=== PATIENT | male | born 1945 | race Caucasian/White ===

== ENCOUNTER 2018-01-17 13:27 | Emergency (ER) | payer MEDICARE, SELFPAY ==
[2018-01-17 13:30] VITALS: BP 143/75; PULSE 102; RESP 20; TEMP 37.1; O2SAT 93; BMI 38.7
--- NOTE | 2018-01-17 14:05 | CT_ITS ---
STUDY: CT ABDOMEN AND PELVIS WITH CONTRAST REASON FOR EXAM: Male, 72 years old. Right diaphragm pain RADIATION DOSAGE (If Supplied By Facility): CTDIvol = ( 22.77 ) mGy, DLP = ( 2106.52 ) mGycm TECHNIQUE: Transaxial images were obtained from the dome of the diaphragm to the symphysis pubis without oral contrast. 100 ml of Isovue 300 contrast was administered. Sagittal and coronal images were reconstructed. Individualized dose optimization techniques were used for this CT. COMPARISON: None. FINDINGS: Bibasilar airspace disease with small right effusion. Mild cardiomegaly. There is decreased attenuation of the liver consistent with steatosis. Normal gallbladder and extrahepatic biliary system. Normal spleen. Normal pancreas. Normal bilateral adrenal glands. Nonenhancing bilateral renal cysts, otherwise kidneys are within normal limits. There is a small hiatal hernia. Normal small intestine. There are multiple colonic diverticula consistent with diverticulosis. The appendix is visualized and appears normal. Normal abdominal aorta. Normal inferior vena cava. Normal retroperitoneum. Bladder diverticulum is noted on the left side. Otherwise, unremarkable bladder. There is enlargement of the prostate gland. Left lateral abdominal wall hernia just underneath the anterior portion of the ribs containing a loop of colon without obstruction. There are diffuse degenerative changes of the visualized lumbar spine. CT/Abdomen/Pelvis W IV Cont ONLY IMPRESSION: Bibasilar airspace disease with small right effusion. Mild cardiomegaly. No acute findings within the abdomen or pelvis Electronically Signed: Candido Piedra DO at 15:48 EDT Tel , Service support ,
[2018-01-17] MEDS: 0.9% Normal Saline 1,000 ML 15 ML IV (14:14)
[2018-01-17 14:38] VITALS: BP 135/74; PULSE 88; RESP 20; O2SAT 92
[2018-01-17 14:44] LABS: Absolute Lymphocyte Count 0.61 X10^3/ul (0.83-4.51); Absolute Neutrophil Count 9.4 X10^3/uL (2.0-7.7); Basophil# 0.01 X10^3/uL; Basophil% 0.1 % (0-1); Hematocrit 41.3 % (40-54); Hemoglobin 13.5 g/dl (13.0-16.5); Lymphocyte # 0.61 X10^3/ul (4.0); Lymphocyte % 5.4 % (19-41); Mean Corp Hgb Conc 32.7 g/gl (32-36); Mean Corpuscular Hgb 29.2 pg (27.0-32.0); Mean Corpuscular Volume 89.4 fL (80-94); Mean Platelet Vol. 10.4 fl (6.2-12.0); Monocyte# 1.34 X10^3/uL; Monocyte% 11.8 % (0-10); Neutrophil # 9.37 X10^3/uL (2.7-7.7); Neutrophil % 82.5 % (47-70); POSITIVE COUNT NO; POSITIVE DIFFERENTIAL NO; POSITIVE MORPHOLOGY NO; Platelet Count 235 K/mm3 (150-450); RBC Distribution Width CV 13.1 % (11.6-14.6); RBC Distribution Width SD 42.6 fl (35.1-43.9); Red Blood Count 4.62 M/mm3 (4.6-6.2); White Blood Count 11.4 K/mm3 (4.4-11.0)
[2018-01-17 14:49] LABS: Anion Gap 10 (5-15); BUN 19 mg/dL (7-18); BUN/Creat Ratio 14.8 RATIO (10-20); Calcium,Total 8.7 mg/dL (8.5-10.1); Chloride 98 mmol/L (98-107); Creatinine, Serum 1.28 mg/dL (0.70-1.30); EST Glomerular Filtration Rate 59 mL/min (>60); Est Glom Filt Rate - Afr Amer 71 mL/min (>60); Estimated Creatinine Clearance 53.86 ml/min; Glucose 135 mg/dL (74-106); Potassium 3.5 mmol/L (3.5-5.1); Sodium Level 135 mmol/L (136-145)
[2018-01-17 15:44] VITALS: BP 145/75; PULSE 90; RESP 18; O2SAT 97
[2018-01-17 16:18] VITALS: BP 140/76; PULSE 91; RESP 20; O2SAT 96
--- NOTE | 2018-01-17 16:32 | ED.VISSUMM ---
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 Patient states 3 weeks ago he developed low back pain. It seemed to resolve after a week or so. Over the past 4 days or so patient now has pain in the left lateral abdominal wall and the left lower ribs. He does have increased pain when he takes a deep breath. He denies leg pain or swelling. Denies nausea, vomiting, or diarrhea. Patient denies any known injury. Physical Examination: Vital signs are gross unremarkable. Patient sitting upright in bed no acute distress. Head and neck examination is normal. Heart is regular rate and rhythm. Lung sounds are clear. He has reproducible chest wall tenderness in the left lower chest. Abdomen is soft with tenderness in the left lateral abdominal wall. Ecchymosis is noted to this area as well. Lower extremity examination reveals no significant edema. He has strong distal pulses. Test Results: EKG is sinus at 100 with no sign of acute ischemia. CBC was a white count 11.4 with 82% neutrophils. Chemistry studies are grossly unremarkable. Troponin is negative. CTA of the chest shows no evidence of PE or dissection. There is a questionable small amount of edema. CT the abdomen and pelvis shows bibasilar airspace disease with small right pleural effusion. No acute findings are noted in the abdomen or pelvis. Emergency Department Course and Treatment: Patient received IV fluids here. Test results were discussed with him at length. At this time I see no evidence of PE or internal injury causing his pain and bruising. Patient believes he has pleurisy as it does feel similar to this in the past. I advised him that this may be the case for his chest pain, but I am unable to explain why he also has abdominal pain with abdominal wall bruising. Most likely has a contusion that he does not remember. Patient will be treated with a course of steroids and he will use Tylenol or ibuprofen. Treatment Plan: [] Disposition: Discharge Impression: 1. Pleuritic chest pain 2. Abdominal wall contusion This note was generated with [employer] dictation software. It may contain incorrect words, spelling, and punctuation that were not noted in review of the chart prior to signing ED Disposition - Plan for ED Patient: Chief Complaint: Chest Pain Referrals: Hamilton Israel MD [Primary Care Provider] -
--- NOTE | 2018-01-17 16:36 | ED.DCSUM_ITS ---
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 Patient states 3 weeks ago he developed low back pain. It seemed to resolve after a week or so. Over the past 4 days or so patient now has pain in the left lateral abdominal wall and the left lower ribs. He does have increased pain when he takes a deep breath. He denies leg pain or swelling. Denies nausea, vomiting, or diarrhea. Patient denies any known injury. Physical Examination: Vital signs are gross unremarkable. Patient sitting upright in bed no acute distress. Head and neck examination is normal. Heart is regular rate and rhythm. Lung sounds are clear. He has reproducible chest wall tenderness in the left lower chest. Abdomen is soft with tenderness in the left lateral abdominal wall. Ecchymosis is noted to this area as well. Lower extremity examination reveals no significant edema. He has strong distal pulses. Test Results: EKG is sinus at 100 with no sign of acute ischemia. CBC was a white count 11.4 with 82% neutrophils. Chemistry studies are grossly unremarkable. Troponin is negative. CTA of the chest shows no evidence of PE or dissection. There is a questionable small amount of edema. CT the abdomen and pelvis shows bibasilar airspace disease with small right pleural effusion. No acute findings are noted in the abdomen or pelvis. Emergency Department Course and Treatment: Patient received IV fluids here. Test results were discussed with him at length. At this time I see no evidence of PE or internal injury causing his pain and bruising. Patient believes he has pleurisy as it does feel similar to this in the past. I advised him that this may be the case for his chest pain, but I am unable to explain why he also has abdominal pain with abdominal wall bruising. Most likely has a contusion that he does not remember. Patient will be treated with a course of steroids and he will use Tylenol or ibuprofen. Treatment Plan: [] Disposition: Discharge Impression: 1. Pleuritic chest pain 2. Abdominal wall contusion This note was generated with [employer] dictation software. It may contain incorrect words, spelling, and punctuation that were not noted in review of the chart prior to signing ED Disposition - Plan for ED Patient: Chief Complaint: Chest Pain Referrals: Hamilton Israel MD [Primary Care Provider] -
--- NOTE | 2018-01-17 16:36 | ED.DEP ---
ED Disposition - Plan for ED Patient: Disposition: Home or Assisted Living Chief Complaint: Chest Pain Instructions: ED Chest Pain Pleurisy, ED Contusion Chest Wall Prescriptions: Prednisone 10 mg PO UD #33 tablet Referrals: Hamilton Israel MD [Primary Care Provider] - 1 Week if not improving
[2018-01-17 16:40] VITALS: BP 148/76; PULSE 98; RESP 20; O2SAT 97
[2018-01-17] MEDS: predniSONE 20 MG Tablet 60 MG PO (16:44)
== END 2018-01-17 16:47 | disposition home or self-care (01) ==
PROVIDERS: Emergency Provider Emergency Medicine; Family Provider Family Medicine; PCP Family Medicine
DX: R07.81 Pleurodynia (principal); M54.5 Low back pain; S30.1XXA Contusion of abdominal wall, initial encounter; X58.XXXA Exposure to other specified factors, initial encounter; Y93.9 Activity, unspecified; Y92.9 Unspecified place or not applicable; Y99.9 Unspecified external cause status; I10 Essential (primary) hypertension; Z79.82 Long term (current) use of aspirin; Z79.899 Other long term (current) drug therapy
CPT/HCPCS: 71275; 74177; 80048; 84484; 85025; 93005; 99285; J7030; Q9967; A4216

== ENCOUNTER 2018-03-27 17:28 | Emergency (ER) | payer MEDICARE, SELFPAY ==
[2018-03-27] VITALS (7 sets, daily range): BP systolic 79–120; BP diastolic 43–50; PULSE 96–112; RESP 16–18; TEMP 36.5; O2SAT 91–100; BMI 38.0
--- NOTE | 2018-03-27 17:41 | RAD_ITS ---
STUDY: X-RAY CHEST REASON FOR EXAM: Male, 73 years old. Shortness of breath. GI bleed. TECHNIQUE: Single frontal view of the chest. COMPARISON: None. FINDINGS: The lungs are mildly hyperexpanded. There is no demonstrated pleural abnormality. There is borderline cardiomegaly. Normal mediastinum and cyrus. Normal visualized pulmonary arteries. Normal visualized aortic arch and descending thoracic aorta. Normal visualized thoracic spine. Normal visualized ribs, clavicles, and shoulders. There is no demonstrated abnormality of the visualized soft tissue structures of the upper abdomen. RAD/Chest 1 View (Portable) IMPRESSION: Borderline cardiomegaly with mild hyperexpansion. No acute abnormality. Electronically Signed: David Johnston MD at 18:10 EDT , Service support ,
--- NOTE | 2018-03-27 17:41 | CT_ITS ---
STUDY: CT ABDOMEN AND PELVIS WITH CONTRAST REASON FOR EXAM: Male, 73 years old. Abdominal pain, leukocytosis, prior hernia repair RADIATION DOSAGE (If Supplied By Facility): CTDIvol = ( 17.08 ) mGy, DLP = ( 1515.28 ) mGycm TECHNIQUE: Transaxial images were obtained from the lower chest to the upper thighs with oral contrast. 100 ml of Isovue 300 contrast was administered. Sagittal and coronal images were reconstructed. Individualized dose optimization techniques were used for this CT. COMPARISON: January 17, 2018 FINDINGS: There is minimal dense opacity in the left lower lobe with a few air bronchograms. There are coarse markings in the right lower lobe. There is moderate fluid in the left pleural margin which is partially loculated. There is minimal fluid in the right pleural margin. There is minimal air in the anterior left pleural margin. The heart is normal in size. There is a stable subcentimeter cyst in the right lobe of the liver near the gallbladder. The gallbladder is contracted. There is a 7 mm calcification in the lumen of the gallbladder. The spleen is unremarkable. The pancreas is unremarkable. The adrenal glands are unremarkable. There are a few small cysts in the right kidney. There is no dilatation of the collecting system in the right kidney. A cyst is again seen in the mid pole of the left kidney measuring 3.4 cm in diameter. There is no dilatation of the collecting system in the left kidney. The stomach is distended. Small bowel loops are prominent. There are diverticula in the distal colon without adjacent stranding. The appendix is visualized and appears normal. There are minimal vascular calcifications. The inferior vena cava is unremarkable. There is stranding in the mesentery of the left upper quadrant. There is no free fluid in the abdomen. There is air in the lumen of the bladder. There is a 4.5 cm diverticulum off the left posterior aspect of the bladder, also containing air. The prostate measures up to 6.2 cm in diameter. There are small phleboliths scattered in the lower pelvis. There is stranding along the lateral left upper abdominal wall. Fluid is present in the left lateral abdominal wall, and there are air foci in the left lateral abdominal wall and musculature. There are fractures in the left lower ribs, likely from recent surgery. There are mild degenerative changes visualized spine. There are marked degenerative disc changes at L5-S1. CT/Abdomen/Pelvis WITH Contrast IMPRESSION: There are surgical changes along the left lateral abdominal wall after repair of a wide necked hernia. Inflammation, fluid and air are seen in the soft tissues and musculature of the left lateral abdominal wall after surgery. There is no free air in the abdomen. There is nonspecific stranding/inflammation in the mesentery of the left upper abdomen, and mild peritonitis cannot be excluded. There is no ascites. There are loculated fluid collections in the left lung base, and empyema cannot be excluded. There are small air foci scattered in the left lung base after surgery, and there is a small pneumothorax anteriorly in the left lung base. There is dense atelectasis in the left lower lobe. There is minimal atelectasis in the right lower lobe, and there is a small right pleural effusion. Small bowel loops are prominent, probable ileus. There is no evidence of bowel obstruction. The stomach is distended. The gallbladder is contracted and there is a single gallstone in the lumen of the gallbladder. The prostate is enlarged. N.B. : The above information has been verbally conveyed by Sonya Ramirez MD to Elsie Glasgow MD, on 03/27/2018 21:14:31 (ET). Electronically Signed: Sonya Ramirez MD at 21:20 EDT Tel Direct: [phone], Service support ,
--- NOTE | 2018-03-27 17:41 | EKG12_ITS ---
Test Reason : GI BLEED Blood Pressure : / mmHG Vent. Rate : 101 BPM Atrial Rate : 101 BPM P-R Int : 140 ms QRS Dur : 088 ms QT Int : 394 ms P-R-T Axes : 060 030 026 degrees QTc Int : 510 ms Sinus tachycardia Otherwise normal ECG Confirmed by LISA MALIN, ANNABELLE ([id number]), acquisitions editor BRENDEN REID ([id number]) on 03/29/2018 3:43:18 PM Referred By: Confirmed By:ANNABELLE GONZALEZ MD
[2018-03-27] MEDS: 0.9% Normal Saline 1,000 ML 1000 ML IV (17:45)
[2018-03-27 17:54] LABS: Absolute Lymphocyte Count 1.38 X10^3/ul (0.83-4.51); Absolute Neutrophil Count 20.5 X10^3/uL (2.0-7.7); Basophil# 0.03 X10^3/uL; Basophil% 0.1 % (0-1); Eosinophil# 0.14 X10^3/uL; Eosinophils% 0.6 % (0-5); Hematocrit 29.2 % (40-54); Hemoglobin 9.2 g/dl (13.0-16.5); Lymphocyte # 1.38 X10^3/ul (4.0); Lymphocyte % 5.6 % (19-41); Mean Corp Hgb Conc 31.5 g/gl (32-36); Mean Corpuscular Hgb 28.8 pg (27.0-32.0); Mean Corpuscular Volume 91.5 fL (80-94); Mean Platelet Vol. 10.8 fl (6.2-12.0); Monocyte% 8.9 % (0-10); Neutrophil # 20.51 X10^3/uL (2.7-7.7); Neutrophil % 83.3 % (47-70); Platelet Count 359 K/mm3 (150-450); RBC Distribution Width CV 14.2 % (11.6-14.6); RBC Distribution Width SD 46.7 fl (35.1-43.9); Red Blood Count 3.19 M/mm3 (4.6-6.2); White Blood Count 24.6 K/mm3 (4.4-11.0)
[2018-03-27 17:55] LABS: Differential Indicated SCAN CRITERIA MET; International Normalized Ratio 1.1; POSITIVE COUNT NO; POSITIVE DIFFERENTIAL YES; POSITIVE MORPHOLOGY NO
[2018-03-27 17:56] LABS: Partial Thromboplast Time 36.3 Seconds (24.1-36.2)
--- NOTE | 2018-03-27 17:58 | ED.VISSUMM ---
- ER Visit Summary Date of Service: 03/27/18 Chief Complaint: Fatigue History of Present Illness: The patient is a 73 M presenting with fatigue. Patient had surgery 2 weeks ago in [place]. He was traveling at the time. He had multiple hernias repaired as well as a perforated stomach. He also recently sustained broken ribs from a fall. He states over the last 2 days he has had low energy. He has had near syncope. He has been having black stool. He denies abdominal pain. Denies nausea or vomiting. He is not on anticoagulants. He denies chest pain. Complains of shortness of breath. Denies fever. Physical Examination: Blood pressure 79/45, temperature 97.7, heart rate 105, respiratory 18, pulse ox 98% on nasal cannula. HEENT exam is unremarkable. Neck is supple. Lungs are clear and equal bilaterally. Heart is regular and tachycardic Abdomen is soft nontender nondistended. Incisions clean dry and intact Extremities are unremarkable. Skin is warm and dry. No focal neurologic deficit. Remainder of exam is unremarkable. Emergency Department Course and Treatment: Patient is given IV fluids. Repeat BP 103/48. EKG is sinus tachycardia rate of 101 with no acute ischemic changes. Records from [facility] were obtained. On 03/15/2018 he had surgery for diaphragmatic hernia repair, repair of perforated stomach and chest wall herniation. He was discharged on 03/22/18. CBC shows white count 24.6, hemoglobin 9.2. Chemistries show sodium 135, glucose 128. BUN 44, creatinine 1.52. INR 1.1. Troponin is negative. Lactic acid is 2.9. Stool is guaiac positive. Chest x-ray shows no acute process. CT abdomen pelvis shows there are surgical changes along the left lateral abdominal wall after repair of a wide necked hernia. Inflammation, fluid and air are seen in the soft tissues and musculature of the left lateral abdominal wall after surgery. There is no free air in the abdomen. There is nonspecific stranding/inflammation in the mesentery of the left upper abdomen, and mild peritonitis cannot be excluded. There is no ascites. There are loculated fluid collections in the left lung base, and empyema cannot be excluded. There are small air foci scattered in the left lung base after surgery, and there is a small pneumothorax anteriorly in the left lung base. There is dense atelectasis in the left lower lobe. There is minimal atelectasis in the right lower lobe, and there is a small right pleural effusion. Small bowel loops are prominent, probable ileus. There is no evidence of bowel obstruction. The stomach is distended. The gallbladder is contracted and there is a single gallstone in the lumen of the gallbladder. The prostate is enlarged. Blood cultures were sent. He was given Zosyn and vancomycin. Discussed with Dr. Munguia. Due to his complicated surgery she feels that he requires tertiary care transfer. Patient has [employer] insurance. Discussed with [facility] for transfer. Disposition: Transfer [facility] Impression: GI bleed, leukocytosis, left lung fluid collection with concern for empyema, status post diaphragmatic hernia repair This note was generated with [employer] dictation software. It may contain incorrect words, spelling, and punctuation that were not noted in review of the chart prior to signing ED Disposition - Plan for ED Patient: Disposition: [facility] Chief Complaint: GI Bleed Referrals: Hamilton Israel MD [Primary Care Provider] -
--- NOTE | 2018-03-27 18:01 | ED.DCSUM_ITS ---
- ER Visit Summary Date of Service: 03/27/18 Chief Complaint: Fatigue History of Present Illness: The patient is a 73 M presenting with fatigue. Patient had surgery 2 weeks ago in [place]. He was traveling at the time. He had multiple hernias repaired as well as a perforated stomach. He also recently sustained broken ribs from a fall. He states over the last 2 days he has had low energy. He has had near syncope. He has been having black stool. He denies abdominal pain. Denies nausea or vomiting. He is not on anticoagulants. He denies chest pain. Complains of shortness of breath. Denies fever. Physical Examination: Blood pressure 79/45, temperature 97.7, heart rate 105, respiratory 18, pulse ox 98% on nasal cannula. HEENT exam is unremarkable. Neck is supple. Lungs are clear and equal bilaterally. Heart is regular and tachycardic Abdomen is soft nontender nondistended. Incisions clean dry and intact Extremities are unremarkable. Skin is warm and dry. No focal neurologic deficit. Remainder of exam is unremarkable. Emergency Department Course and Treatment: Patient is given IV fluids. Repeat BP 103/48. EKG is sinus tachycardia rate of 101 with no acute ischemic changes. Records from [facility] were obtained. On 03/15/2018 he had surgery for diaphragmatic hernia repair, repair of perforated stomach and chest wall herniation. He was discharged on 03/22/18. CBC shows white count 24.6, hemo globin 9.2. Chemistries show sodium 135, glucose 128. BUN 44, creatinine 1.52. INR 1.1. Troponin is negative. Lactic acid is 2.9. Stool is guaiac positive. Chest x-ray shows no acute process. CT abdomen pelvis shows there are surgical changes along the left lateral abdominal wall after repair of a wide necked hernia. Inflammation, fluid and air are seen in the soft tissues and musculature of the left lateral abdominal wall after surgery. There is no free air in the abdomen. There is nonspecific stranding/inflammation in the mesentery of the left upper abdomen, and mild peritonitis cannot be excluded. There is no ascites. There are loculated fluid collections in the left lung base, and empyema cannot be excluded. There are small air foci scattered in the left lung base after surgery, and there is a small pneumothorax anteriorly in the left lung base. There is dense atelectasis in the left lower lobe. There is minimal atelectasis in the right lower lobe, and there is a small right pleural effusion. Small bowel loops are prominent, probable ileus. There is no evidence of bowel obstruction. The stomach is distended. The gallbladder is contracted and there is a single gallstone in the lumen of the gallbladder. The prostate is enlarged. Blood cultures were sent. He was given Zosyn and vancomycin. Discussed with Dr. Munguia. Due to his complicated surgery she feels that he requires tertiary care transfer. Patient has [employer] [facility] insurance. Discussed with [facility] for transfer. Disposition: Transfer [facility] Impression: GI bleed, leukocytosis, left lung fluid collection with concern for empyema, status post diaphragmatic hernia repair This note was generated with [employer] dictation software. It may contain incorrect words, spelling, and punctuation that were not noted in review of the chart prior to signing ED Disposition - Plan for ED Patient: Disposition: [facility] Chief Complaint: GI Bleed Referrals: Hamilton Israel MD [Primary Care Provider] -
[2018-03-27 18:06] LABS: Differential Comment SCANNED
[2018-03-27 18:07] LABS: Anion Gap 9 (5-15); BUN 44 mg/dL (7-18); BUN/Creat Ratio 28.9 RATIO (10-20); Calcium,Total 8.3 mg/dL (8.5-10.1); Chloride 100 mmol/L (98-107); Creatinine, Serum 1.52 mg/dL (0.70-1.30); EST Glomerular Filtration Rate 48 mL/min (>60); Est Glom Filt Rate - Afr Amer 58 mL/min (>60); Estimated Creatinine Clearance 43.28 ml/min; Glucose 128 mg/dL (74-106); Potassium 4.5 mmol/L (3.5-5.1); Sodium Level 135 mmol/L (136-145)
[2018-03-27 18:25] LABS: Lactic Acid 2.9 mmol/L (0.4-2.0)
[2018-03-27 21:06] LABS: Bacteria 0 SEEN /hpf (None Seen); Mucous, Urine 0 SEEN /hpf (<or=2+); Squamous Epithelial Cells - UA 0 SEEN /hpf (0-5)
[2018-03-27 21:07] LABS: Color, Urine Yellow (Yellow); Glucose, Dipstick Normal (Normal); Ketone-Dipstick Negative (Negative); Leukocyte Esterase-Dipstick 25 /ul (Negative); Nitrite-Dipstick Negative (Negative); Occult Blood-Urine 10 /ul (Negative); Protein-Dipstick Negative (Negative); Urine Bilirubin Dipstick Negative (Negative); Urine Clarity Clear (Clear); Urine Urobilinogen Normal (Normal)
[2018-03-27 21:16] LABS: Red Blood Cells-Urine 0-5 SEEN /hpf (0-5); White Blood Cells 0-5 SEEN /hpf (0-5)
[2018-03-27] MEDS: Piperacil/Tazobactam 3.375 GM/50 ML ML IV (21:45)
[2018-03-27 21:48] LABS: Reflex Lactate? Y
[2018-03-27 23:15] LABS: Lactic Acid 1.1 mmol/L (0.4-2.0)
== END 2018-03-27 22:45 | disposition short-term general hospital (02) ==
PROVIDERS: Emergency Provider Emergency Medicine; Family Provider Family Medicine; PCP Family Medicine
DX: K92.2 Gastrointestinal hemorrhage, unspecified (principal); D72.829 Elevated white blood cell count, unspecified; R00.0 Tachycardia, unspecified; J90 Pleural effusion, not elsewhere classified; J98.11 Atelectasis; I10 Essential (primary) hypertension; S22.42XD Multiple fractures of ribs, left side, subsequent encounter for fracture with routine healing; W19.XXXD Unspecified fall, subsequent encounter; K82.0 Obstruction of gallbladder; N40.0 Benign prostatic hyperplasia without lower urinary tract symptoms; Z79.82 Long term (current) use of aspirin; Z79.899 Other long term (current) drug therapy; Z98.890 Other specified postprocedural states
CPT/HCPCS: 71045; 74177; 80048; 81001; 82274; 83605; 84484; 85025; 85610; 85730; 87040; 93005; 96361; 96365; 96375; 99285; J7030; J7040; J7050; Q9967; A4216

== ENCOUNTER 2020-02-26 13:47 | Emergency (ER) | payer MEDICARE, SELFPAY ==
[2020-02-26 13:50] VITALS: BP 113/69; PULSE 109; RESP 16; TEMP 36.3; O2SAT 99; BMI 40.8
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
[2020-02-26] MEDS: Ketorolac 60 MG/2 ML Vial IM (14:52)
== END 2020-02-26 16:15 | disposition home or self-care (01) ==
LOC: ED 14:52
PROVIDERS: Emergency Provider Emergency Medicine; PCP Family Medicine
DX: S39.012A Strain of muscle, fascia and tendon of lower back, initial encounter (principal); M51.36 Other intervertebral disc degeneration, lumbar region; V64.5XXA Driver of heavy transport vehicle injured in collision with heavy transport vehicle or bus in traffic accident, initial encounter; Y93.9 Activity, unspecified; Y92.9 Unspecified place or not applicable; Y99.0 Civilian activity done for income or pay; Z79.899 Other long term (current) drug therapy
CPT/HCPCS: 72100; 96372; 99282

== ENCOUNTER 2020-08-05 15:39 | Emergency (ER) | payer MEDICARE, SELFPAY ==
[2020-08-05 15:40] VITALS: BP 154/73; PULSE 92; RESP 17; TEMP 35.3; O2SAT 95; BMI 41.3
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
== END 2020-08-05 16:08 | disposition home or self-care (01) ==
LOC: ED 16:02
PROVIDERS: Emergency Provider Emergency Medicine; PCP Family Medicine
DX: S39.012A Strain of muscle, fascia and tendon of lower back, initial encounter (principal); I10 Essential (primary) hypertension; V49.9XXA Car occupant (driver) (passenger) injured in unspecified traffic accident, initial encounter; Y93.I9 Activity, other involving external motion; Y92.410 Unspecified street and highway as the place of occurrence of the external cause; Y99.8 Other external cause status
CPT/HCPCS: 99282